=== PATIENT | female | born 1965 | race Caucasian/White ===

== ENCOUNTER 2018-05-01 07:16 | Outpatient (CLI) | payer OTHER ==
[~2018-05-01 07:16] MED LIST: PANTOPRAZOLE SO20 MG
== END 2018-05-01 07:32 | disposition home or self-care (01) ==
LOC: RAD 07:16
DX: K57.32 Diverticulitis of large intestine without perforation or abscess without bleeding (principal); R10.32 Left lower quadrant pain; R10.13 Epigastric pain; N60.11 Diffuse cystic mastopathy of right breast; N60.12 Diffuse cystic mastopathy of left breast; Z12.31 Encounter for screening mammogram for malignant neoplasm of breast

== ENCOUNTER 2018-05-19 07:08 | Outpatient (CLI) | payer OTHER | END 2018-05-19 07:16 | disposition home or self-care (01) | LOC: SONOGRAMA 07:08 | DX: R10.13 Epigastric pain (principal) ==

== ENCOUNTER 2018-06-27 09:37 | Emergency (ER) | payer OTHER ==
[~2018-06-27] VITALS: Ht 167.6 cm; Wt 58.1 kg
[2018-06-27] MEDS ORDERED: CIPRO500 MG PO (17:06)
[2018-06-27] MEDS ORDERED: INTESTINEX680 M1 PO (17:07)
[2018-06-27] MEDS ORDERED: METRONIDAZOLE500 MG PO (17:07)
[2018-06-27] MEDS ORDERED: OMEPRAZOLE40 MG PO (17:08)
== END 2018-06-27 20:40 | disposition home or self-care (01) ==
LOC: ER 09:37
DX: K57.92 Diverticulitis of intestine, part unspecified, without perforation or abscess without bleeding (principal)